=== PATIENT | female | born 1945 | race Caucasian/White ===

== ENCOUNTER 2016-11-06 07:35 | Emergency (ER) | payer OTHER ==
[~2016-11-06] VITALS: Ht 165.1 cm; Wt 69.3 kg
[~2016-11-06 07:35] MED LIST: CHOL100010 PO; CLOT10TR2 MT; LISI-725 PO; SIMV20TA2 PO
[2016-11-06] MEDS ORDERED: SODIUM CHLORIDE 0.9% 1000ML 1,000 ML IV STA (07:38)
[2016-11-06 07:42] VITALS: TEMP 36.7; O2SAT 95; Ht 165.1 cm; Wt 69.3 kg
--- NOTE | 2016-11-06 07:50 | EMERGENCY ROOM VISIT NOTE ---
History Report prepared by Leda: William Pearson Under the Supervision of: Dr. Harley Hopson M.D. First contact with patient: 07:37 Chief Complaint: SYNCOPE Stated Complaint: SYNCOPE, UPPER GASTRIC PAIN History of Present Illness The patient is a 71 year old female who presents to the Emergency Room with complaints of a resolved episode of syncope that occurred just prior to arrival. The patient woke up this morning to go to the bathroom and was feeling weak at that time. She was sitting on the toilet when she passed out and slid off of the toilet. The patient did not hit her head. The patient has passed out before when she had Lyme's disease years ago. The patient also complains of intermittent epigastric pain since yesterday. She experienced similar epigastric pain in the past when she had thrush. 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 A total of 10 systems reviewed and were otherwise negative. Past Medical & Surgical Medical Problems: (1) History of cellulitis (2) Lyme disease (3) Thrush Family History Cancer Heart disease Hypertension Social History Smoking Status: Former Smoker Drug Use: none Marital Status: Housing Status: lives with family Occupation Status: retired Current/Historical Medications Scheduled Cholecalciferol (Kp Vitamin D), 4,000 UNITS PO DAILY Clotrimazole (Mycelex), 10 MG MT 5XD Lisinopril (Zestril), 20 MG PO HS Oseltamivir Phosphate (Tamiflu), 75 MG PO BID Pantoprazole (Protonix), 40 MG PO DAILY Probiotic Product (Probiotic), Unknown Dose PO DAILY Ranitidine Hcl (Zantac), 75 MG PO DAILY Simvastatin (Zocor), 1 TAB PO HS Allergies Coded Allergies: Fluconazole (Unverified Allergy, Severe, HIVES, 11/06/16) Physical Exam Vital Signs Date Time Temp Pulse Resp B/P Pulse Ox O2 Delivery O2 Flow Rate FiO2 11/06/16 11:45 72 18 107/73 96 11/06/16 09:47 67 18 120/70 95 Room Air 11/06/16 08:24 71 18 128/59 100 Room Air 11/06/16 07:48 73 11/06/16 07:48 68 137/72 71 109/70 11/06/16 07:42 95 Room Air 11/06/16 07:42 36.7 68 18 126/83 95 Room Air Physical Exam GENERAL: Patient is a healthy-appearing well-nourished HEAD: Normocephalic atraumatic EYES: Ocular movements intact pupils equal and react to light OROPHARYNX mucous membranes are moist no exudates present no erythema or edema present NECK: Supple no nuchal rigidity CHEST: Good equal expansion LUNGS: Clear and equal to auscultation CARDIAC: Normal S1 and S2 ABDOMEN: Soft nontender no guarding BACK: No CVA tenderness EXTREMITIES: No pain upon palpation normal muscle strength in all groups no clubbing cyanosis or edema NEURO: Patient is following commands is answering questions appropriately. Alert and oriented x3 Cranial Nerves 2-12 grossly intact Medical Decision & Procedures ER Provider Diagnostic Interpretation: X-ray results as stated below per interpretation by me and the radiologist: CHEST ONE VIEW PORTABLE CLINICAL HISTORY: Syncope. COMPARISON STUDY: Chest radiograph April 15, 2015 [place] FINDINGS: Lung volumes are normal. Mild left basilar opacity suggests atelectasis. There is no consolidation to suggest pneumonia and there is no evidence of pulmonary edema. Cardiomediastinal silhouette is normal. IMPRESSION: 1. No acute findings. 2. Mild left basilar opacity suggestive of atelectasis. Electronically signed by: Jonh Perez M.D. 11/06/2016 8:09 AM Dictated Date/Time: 11/06/2016 8:08 AM Laboratory Results 11/06/16 07:10 Red Blood Count 5.20, Mean Corpuscular Volume 86.5, Mean Corpuscular Hemoglobin 30.8, Mean Corpuscular Hemoglobin Concent 35.6, Mean Platelet Volume 11.3, Neutrophils (%) (Auto) 31.2, Lymphocytes (%) (Auto) 59.7, Monocytes (%) (Auto) 8.8, Eosinophils (%) (Auto) 0.0, Basophils (%) (Auto) 0.3, Neutrophils # (Auto) 1.18, Lymphocytes # (Auto) 2.25, Monocytes # (Auto) 0.33, Eosinophils # (Auto) 0.00, Basophils # (Auto) 0.01 11/06/16 07:10 Test 11/06/16 07:10 11/06/16 07:54 11/06/16 08:21 11/06/16 10:45 White Blood Count 3.77 K/uL (4.8-10.8) Red Blood Count 5.20 M/uL (4.2-5.4) Hemoglobin 16.0 g/dL (12.0-16.0) Hematocrit 45.0 % (37-47) Mean Corpuscular Volume 86.5 fL (80-100) Mean Corpuscular Hemoglobin 30.8 pg (25-34) Mean Corpuscular Hemoglobin Concent 35.6 g/dl (32-36) Platelet Count 176 K/uL (130-400) Mean Platelet Volume 11.3 fL (7.4-10.4) Neutrophils (%) (Auto) 31.2 % Lymphocytes (%) (Auto) 59.7 % Monocytes (%) (Auto) 8.8 % Eosinophils (%) (Auto) 0.0 % Basophils (%) (Auto) 0.3 % Neutrophils # (Auto) 1.18 K/uL (1.4-6.5) Lymphocytes # (Auto) 2.25 K/uL (1.2-3.4) Monocytes # (Auto) 0.33 K/uL (0.11-0.59) Eosinophils # (Auto) 0.00 K/uL (0-0.5) Basophils # (Auto) 0.01 K/uL (0-0.2) RDW Standard Deviation 41.9 fL (36.4-46.3) RDW Coefficient of Variation 13.2 % (11.5-14.5) Immature Granulocyte % (Auto) 0.0 % Immature Granulocyte # (Auto) 0.00 K/uL (0.00-0.02) Smudge Cells PRESENT Giant Platelets 1+ Anion Gap 14.0 mmol/L (3-11) Est Creatinine Clear Calc Drug Dose 49.7 ml/min Estimated GFR () 65.2 Estimated GFR (Non- 56.2 BUN/Creatinine Ratio 11.1 (10-20) Calcium Level 9.1 mg/dl (8.5-10.1) Total Bilirubin 0.4 mg/dl (0.2-1) Direct Bilirubin 0.1 mg/dl (0-0.2) Aspartate Amino Transf (AST/SGOT) 23 U/L (15-37) Alanine Aminotransferase (ALT/SGPT) 20 U/L (12-78) Alkaline Phosphatase 56 U/L (45-117) Total Creatine Kinase 83 U/L (26-192) Creatine Kinase MB 0.8 ng/ml (0.5-3.6) Creatine Kinase MB Ratio 1.0 (0-3.0) Troponin I < 0.015 ng/ml (0-0.045) Total Protein 7.4 gm/dl (6.4-8.2) Albumin 3.8 gm/dl (3.4-5.0) Thyroid Stimulating Hormone (TSH) 5.470 uIu/ml (0.300-4.500) Bedside Glucose 115 mg/dl (70-90) Influenza Type A Antigen Neg for Influ A (NEG) Influenza Type B Antigen POS for Influ B (NEG) Urine Color YELLOW Urine Appearance CLEAR (CLEAR) Urine pH 7.5 (4.5-7.5) Urine Specific [place] 1.010 (1.000-1.030) Urine Protein NEG (NEG) Urine Glucose (UA) NEG (NEG) Urine Ketones TRACE (NEG) Urine Occult Blood NEG (NEG) Urine Nitrite NEG (NEG) Urine Bilirubin NEG (NEG) Urine Urobilinogen NEG (NEG) Urine Leukocyte Esterase NEG (NEG) Labs reviewed by ED physician. Medications Administered Medications (Trade) Dose Ordered Sig/Liam Route Start Time Stop Time Status Last Admin Dose Admin Sodium Chloride (Nss 1000ml) 1,000 ml @ 999 mls/hr Q1H1M STAT IV 11/06/16 07:38 11/06/16 08:38 DC 11/06/16 07:56 999 MLS/HR Ondansetron HCl (Zofran Inj) 4 mg NOW STAT IV 11/06/16 08:00 11/06/16 08:01 DC 11/06/16 08:07 4 MG Potassium Chloride (Klor-Con M10) 40 meq NOW STAT PO 11/06/16 08:19 11/06/16 08:20 DC 11/06/16 08:37 40 MEQ Oseltamivir Phosphate (Tamiflu Cap) 75 mg NOW STAT PO 11/06/16 09:05 11/06/16 09:06 DC 11/06/16 09:15 75 MG Acetaminophen (Tylenol Tab) 1,000 mg NOW STAT PO 11/06/16 09:32 11/06/16 09:33 DC 11/06/16 09:44 1,000 MG ECG Indication: syncope Rate (beats per minute): 68 Rhythm: normal sinus Findings: no acute ischemic change, no ectopy, other (normal EKG) ED Course 0735: Past medical records reviewed. The patient was evaluated in room B4b. A complete history and physical examination was performed. 0738: NSS 1000 ml @ 999 mls/hr. 0800: Zofran 4 mg IV. 0819: Potassium Chloride 40 meq PO. 0905: Tamiflu 75 mg PO. 0932: Tylenol 1000 mg PO. 1000: Reassessed the patient. Discussed the findings with her. She verbalized understanding and agreement of the plan. The patient is ready for discharge. Medical Decision Prior records/ancillary studies reviewed. Triage Nursing notes reviewed. The patient's history was concerning for syncope. Differential diagnosis: Etiologies such as vasovagal event, infection, hypoglycemia, electrolyte abnormalities, cardiac sources, intracerebral event, toxicologic, neurologic, as well as others were entertained. this is a 71-year-old female who presents emergency department complaining of a near syncopal episode as she lower herself to the ground. The patient is positive for the flu she does not have an elevation in her white blood count. She was given fluids in the emergency department and started on Tamiflu. She was also given Tylenol. She was fed in the emergency department. Repeat examination revealed improvement patient's symptoms. At this point the patient would like to try it at home. I offered admission however the patient does not wish to be admitted. Patient was in agreement with the treatment plan. Impression Primary Impression: Influenza B Additional Impression: Syncope Scribe Attestation The scribe's documentation has been prepared under my direction and personally reviewed by me in its entirety. I confirm that the note above accurately reflects all work, treatment, procedures, and medical decision making performed by me. Departure Information Dispostion Home / Self-Care Prescriptions Oseltamivir Phosphate (Tamiflu) 75 Mg Cap 75 MG PO BID, #10 CAP Prov: Harley Hopson MD 11/06/16 Referrals Jose Luis Davila M.D. (PCP) Forms HOME CARE DOCUMENTATION FORM, IMPORTANT VISIT INFORMATION, School Instructions, Work Instructions Patient Instructions ED Fever Control, ED Flu, ED Near Syncope Vasovagal, My [facility] Additional Instructions Take 1000 mg Tylenol every 6 hours Increase fluids next 48 hours You have been examined and treated today on an emergency basis only. This is not a substitute for, or an effort to provide, complete comprehensive medical care. It is impossible to recognize and treat all injuries or illnesses in a single emergency department visit. It is therefore important that you follow up closely with Dr Davila. Call as soon as possible for an appointment. Thank you for your time and consideration. I look forward to speaking with you again soon. Please don't hesitate to call us if you have any questions. Problem Qualifiers Additional Impression: Syncope Syncope type: vasovagal syncope Qualified Codes: R55 - Syncope and collapse
[2016-11-06 07:52] LABS: MEAN CELL VOLUME 86.5 fL (80-100); MEAN CORPUSCULAR HEMOGLOBIN 30.8 pg (25-34); MEAN CORPUSCULAR HGB CONC 35.6 g/dl (32-36); MEAN PLATELET VOLUME 11.3 fL (7.4-10.4); PLATELET COUNT 176 K/uL (130-400); WHITE BLOOD COUNT 3.77 K/uL (4.8-10.8)
[2016-11-06] MEDS ORDERED: ONDANSETRON INJ 2 MG/ML 2 ML VIAL IV STA (08:00)
[2016-11-06] MEDS ORDERED: PANT40TA PO (08:10)
[2016-11-06] MEDS ORDERED: SIMV40TA4 PO (08:10)
[2016-11-06] MEDS ORDERED: CHOL1CAP PO (08:10)
[2016-11-06] MEDS ORDERED: RANI150T3 PO (08:10)
[2016-11-06] MEDS ORDERED: MISCCAP80 PO (08:11)
--- NOTE | 2016-11-06 08:11 | DIAGNOSTIC IMAGING REPORT ---
CHEST ONE VIEW PORTABLE CLINICAL HISTORY: Syncope. COMPARISON STUDY: Chest radiograph April 15, 2015 [place] FINDINGS: Lung volumes are normal. Mild left basilar opacity suggests atelectasis. There is no consolidation to suggest pneumonia and there is no evidence of pulmonary edema. Cardiomediastinal silhouette is normal. IMPRESSION: 1. No acute findings. 2. Mild left basilar opacity suggestive of atelectasis. Electronically signed by: John Perez M.D. 11/06/2016 8:09 AM Dictated Date/Time: 11/06/2016 8:08 AM
[2016-11-06 08:14] LABS: BLOOD UREA NITROGEN 11 mg/dl (7-18); BUN/CREATININE RATIO 11.1 (10-20); CALCIUM 9.1 mg/dl (8.5-10.1); CARBON DIOXIDE 28 mmol/L (21-32); CHLORIDE 93 mmol/L (98-107); GLUCOSE 128 mg/dl (70-99); SODIUM 135 mmol/L (136-145)
[2016-11-06] MEDS ORDERED: POTASSIUM CHLORIDE 10 MEQ TABCR PO STA (08:19)
[2016-11-06 08:24] LABS: ALKALINE PHOSPHATASE 56 U/L (45-117); ALT/SGPT 20 U/L (12-78); AST/SGOT 23 U/L (15-37)
[2016-11-06] MEDS ORDERED: OSELTAMIVIR PHOSPHATE 75 MG CAP PO STA (09:05)
[2016-11-06 09:26] LABS: BASO % 0.3 %; BASO ABS # 0.01 K/uL (0-0.2); COMPLETE YES; GIANT PLATELETS 1+; LYMPH % 59.7 %; MONO % 8.8 %; NEUT % 31.2 %; SMUDGE CELLS PRESENT
[2016-11-06] MEDS ORDERED: ACETAMINOPHEN 500 MG TAB PO STA (09:32)
[2016-11-06] MEDS ORDERED: NF406 PO (09:57)
[2016-11-06 11:15] LABS: URINE APPEARANCE CLEAR (CLEAR); URINE BILIRUBIN NEG (NEG); URINE COLOR YELLOW; URINE NITRITE NEG (NEG); URINE PH 7.5 (4.5-7.5); UROBILINOGEN NEG (NEG)
[2016-11-06 11:20] LABS: MANUAL MICROSCOPIC REQUIRED? NO; REVIEW REQ? NO
[2016-11-06 11:45] VITALS: BP 107/73; PULSE 72; O2SAT 96
[2016-11-08 07:09] LABS: LYMPH ABS # 2.25 K/uL (1.2-3.4)
== END 2016-11-06 11:47 | disposition home or self-care (01) ==
LOC: EDBD 07:35 → C.EDB 07:36
DX: J11.1 Influenza due to unidentified influenza virus with other respiratory manifestations (principal); R55 Syncope and collapse; Z87.891 Personal history of nicotine dependence; R10.9 Unspecified abdominal pain; Z79.899 Other long term (current) drug therapy

== ENCOUNTER → 2016-11-12 | Outpatient (CLI) | payer OTHER ==
[~2016-11-12] MED LIST changes: -CHOL100010 PO; +CHOL1CAP PO; +MISCCAP80 PO; +NF406 PO; +PANT40TA PO; +RANI150T3 PO; -SIMV20TA2 PO; +SIMV40TA4 PO
[2016-11-12 17:45] LABS: BLOOD UREA NITROGEN 14 mg/dl (7-18); BUN/CREATININE RATIO 13.6 (10-20); CALCIUM 9.1 mg/dl (8.5-10.1); CARBON DIOXIDE 30 mmol/L (21-32); CHLORIDE 95 mmol/L (98-107); GLUCOSE 112 mg/dl (70-99); POTASSIUM 3.2 mmol/L (3.5-5.1); SODIUM 133 mmol/L (136-145)
== END | disposition home or self-care (01) ==
LOC: C.LABBFT 14:01
PROVIDERS: ATTEND Internal Medicine
DX: J10.1 Influenza due to other identified influenza virus with other respiratory manifestations (principal); R79.9 Abnormal finding of blood chemistry, unspecified

== ENCOUNTER → 2016-11-25 | Outpatient (CLI) | payer OTHER ==
[2016-11-25 13:03] LABS: ESTIMATED AVERAGE GLUCOSE 114 mg/dl; HA1C FLAG Normal (Normal)
[2016-11-25 13:17] LABS: ALT/SGPT 18 U/L (12-78); AST/SGOT 11 U/L (15-37); BLOOD UREA NITROGEN 13 mg/dl (7-18); BUN/CREATININE RATIO 14.1 (10-20); CALCIUM 9.1 mg/dl (8.5-10.1); CARBON DIOXIDE 31 mmol/L (21-32); CHLORIDE 105 mmol/L (98-107); CHOLESTEROL 149 mg/dl (0-200); CREATININE 0.92 mg/dl (0.60-1.20); GLUCOSE 96 mg/dl (70-99); GLUCOSE,FASTING 96 mg/dl (70-99); POTASSIUM 4.1 mmol/L (3.5-5.1); SODIUM 143 mmol/L (136-145)
[2016-11-25 13:20] LABS: ALB/GLOB RATIO 1.2 (0.9-2); ALKALINE PHOSPHATASE 50 U/L (45-117); CHOLESTEROL/HDL RATIO 2.7; HDL CHOLESTEROL 55 mg/dl; LDL CHOLESTEROL CALCULATED 68 mg/dl; TRIGLYCERIDES 128 mg/dl (0-150); VERY LOW DENSITY LIPOPROT CALC 26 mg/dl
--- NOTE | 2016-12-02 06:15 | CODING QUERY MEDICAL NECESSITY ---
CQSUPPORTING DIAGNOSIS NEEDED A supporting diagnosis is required for the test/procedure performed on this patient in order for us to be reimbursed by the patient's insurance. Please provide a supporting diagnosis for the following test/procedure listed below next to the test name along with your signature. *If there is no additional diagnosis for this patient that would support the following test/procedure please document that below next to the test/procedure. Test(s)/Procedure(s) that require a supporting diagnosis: DOS 11/25/16 VITAMIN D TEST Provider Signature: Date: Thank you Terri Starr Health Information Management Once completed, please kindly fax back to [phone] For questions please call [phone]
== END | disposition home or self-care (01) ==
LOC: C.LABBFT 08:16
PROVIDERS: ATTEND Internal Medicine
DX: E78.00 Pure hypercholesterolemia, unspecified (principal); R73.01 Impaired fasting glucose; M85.80 Other specified disorders of bone density and structure, unspecified site; E55.9 Vitamin D deficiency, unspecified

== ENCOUNTER → 2017-05-20 | Outpatient (CLI) | payer OTHER ==
[~2017-05-20] MED LIST changes: -NF406 PO
--- NOTE | 2017-05-20 12:37 | MAMMOGRAPHY REPORT ---
BILATERAL DIGITAL SCREENING MAMMOGRAM WITH CAD: 05/20/2017 CLINICAL HISTORY: Routine screening. TECHNIQUE: Bilateral CC and MLO views were obtained. Current study was also evaluated with a Compute r Aided Detection (CAD) system. COMPARISON: Comparison is made to exams dated: 05/07/2016 mammogram, 05/04/2015 mammogram, 03/14/2014 m ammogram, 03/11/2013 mammogram, 03/10/2012 mammogram, and 03/06/2011 mammogram - [facility] enter. BREAST COMPOSITION: There are scattered areas of fibroglandular density in both breasts. FINDINGS: There are a few benign-appearing round microcalcifications in the breasts. No suspicious m ass, architectural distortion or cluster of suspicious microcalcifications is seen. IMPRESSION: ACR BI-RADS CATEGORY 1: NEGATIVE There is no mammographic evidence of malignancy. A 1 year screening mammogram is recommended. The pa tient will receive written notification of the results. Approximately 10% of breast cancers are not detected with mammography. A negative mammographic report should not delay biopsy if a clinically suggestive mass is present. Deepa Zamora M.D. ay/:05/20/2017 09:53:[address] Magistrate: Salvador Yang RT(R)(M), [facility] letter sent: Normal 1/2 BI-RADS Code: ACR BI-RADS Category 1: Negative
== END | disposition home or self-care (01) ==
LOC: C.MAMM 09:24
PROVIDERS: ATTEND Internal Medicine
DX: Z12.31 Encounter for screening mammogram for malignant neoplasm of breast (principal)

== ENCOUNTER → 2017-05-27 | Outpatient (CLI) | payer OTHER ==
[2017-05-27 12:27] LABS: BASO % 0.3 %; BASO ABS # 0.01 K/uL (0-0.2); COMPLETE YES; EOS % 1.8 %; HEMATOCRIT 44.4 % (37-47); LYMPH % 31.8 %; LYMPH ABS # 1.22 K/uL (1.2-3.4); MEAN CELL VOLUME 91.7 fL (80-100); MEAN CORPUSCULAR HEMOGLOBIN 30.4 pg (25-34); MEAN CORPUSCULAR HGB CONC 33.1 g/dl (32-36); MEAN PLATELET VOLUME 10.6 fL (7.4-10.4); MONO % 10.4 %; NEUT % 55.7 %; PLATELET COUNT 256 K/uL (130-400); RED BLOOD COUNT 4.84 M/uL (4.2-5.4); WHITE BLOOD COUNT 3.84 K/uL (4.8-10.8)
[2017-05-27 12:43] LABS: URINE APPEARANCE CLEAR (CLEAR); URINE BILIRUBIN NEG (NEG); URINE COLOR YELLOW; URINE NITRITE NEG (NEG); URINE PH 7.5 (4.5-7.5); URINE SPECIFIC GRAVITY 1.015 (1.000-1.030); UROBILINOGEN NEG (NEG); ZZUR CULT IF INDIC CLEAN CATCH NO
[2017-05-27 12:51] LABS: MANUAL MICROSCOPIC REQUIRED? NO; REVIEW REQ? NO
[2017-05-27 13:10] LABS: ESTIMATED AVERAGE GLUCOSE 114 mg/dl; HA1C FLAG Normal (Normal)
[2017-05-27 13:16] LABS: BLOOD UREA NITROGEN 18 mg/dl (7-18); BUN/CREATININE RATIO 20.6 (10-20); CALCIUM 9.5 mg/dl (8.5-10.1); CARBON DIOXIDE 32 mmol/L (21-32); CHLORIDE 102 mmol/L (98-107); CREATININE 0.89 mg/dl (0.60-1.20); GLUCOSE 98 mg/dl (70-99); SODIUM 138 mmol/L (136-145)
== END | disposition home or self-care (01) ==
LOC: C.LABBFT 07:51
PROVIDERS: ATTEND Internal Medicine
DX: R73.01 Impaired fasting glucose (principal)

== ENCOUNTER → 2017-10-20 | Outpatient (CLI) | payer OTHER | END | disposition home or self-care (01) | LOC: C.LABBFT 09:58 | PROVIDERS: ATTEND Nurse Practitioner | DX: R14.0 Abdominal distension (gaseous) (principal) ==

== ENCOUNTER → 2017-10-23 | Outpatient (CLI) | payer OTHER | END | disposition home or self-care (01) | LOC: C.LABBFT 08:02 | PROVIDERS: ATTEND Nurse Practitioner | DX: R14.0 Abdominal distension (gaseous) (principal) ==

== ENCOUNTER → 2017-10-24 | Outpatient (CLI) | payer OTHER | END | disposition home or self-care (01) | LOC: C.LABBFT 07:55 | PROVIDERS: ATTEND Nurse Practitioner | DX: R14.0 Abdominal distension (gaseous) (principal) ==

== ENCOUNTER → 2017-11-10 | Outpatient (CLI) | payer OTHER ==
[~2017-11-10] MED LIST changes: +OPTIRAY 320 IV PRN
--- NOTE | 2017-11-10 12:33 | DIAGNOSTIC IMAGING REPORT ---
ABDOMEN AND PELVIS CT WITH IV AND ORAL CONTRAST CT DOSE: 621.49 mGycm HISTORY: Acute lower abdominal pain ABD PAIN TECHNIQUE: Multiaxial CT images of the abdomen and pelvis were performed following the use of intravenous and oral contrast. A dose lowering technique was utilized adhering to the principles of ALARA. COMPARISON STUDY: None. FINDINGS: Small right [place]chdalek hernia. Mild dependent subsegmental bibasilar atelectasis. There are multiple groundglass nodules of the lung bases, largest of which measure up to 5 mm. Solid 4 mm nodule seen on image 26 series 3. Calcified granulomas of the lung bases are also noted. Small right [place]chdalek hernia. No pneumatosis or pneumoperitoneum. Imaged inferior cardiac chambers are unremarkable. Low attenuating 6 mm lesion of the hepatic dome suggests hepatic cyst however is indeterminate. Liver is otherwise unremarkable. Calcified granulomas are noted throughout the spleen. The pancreas and adrenal glands are within normal limits. The gallbladder is mildly contracted. The kidneys demonstrate no acute abnormality. 3 mm low attenuating lesion of the posterior inferior pole right kidney is too small to characterize however suggest renal cysts. The ureters are within normal limits. The urinary bladder is collapsed. Uterus and right adnexum are unremarkable. There is an ovoid cystic appearing lesion adjacent to the left adnexum, 2.9 x 2.0 cm nicely seen on image 324 of series 3. Moderate mixed plaquing tortuosity of the abdominal aorta. No bulky adenopathy identified. There is no bowel obstruction or focal bowel wall thickening identified. The appendix appears normal. Soft tissues are unremarkable. The bones appear intact. Multilevel discogenic degenerative changes and facet arthrosis of the spine. IMPRESSION: 1. No acute intra-abdominal or intrapelvic abnormality identified. 2. No bowel obstruction or focal bowel wall thickening. Normal appendix. 3. Multiple nonspecific groundglass nodules of the bilateral lung bases measuring up to 5 mm suggest infectious or inflammatory pneumonitis. 4. Prior granulomatous disease. 5. Ovoid 2.9 cm cystic lesion of the left adnexum is indeterminate. This could be further evaluated with nonemergent pelvic ultrasound. Electronically signed by: Latrell Roberts M.D. 11/10/2017 12:31 PM Dictated Date/Time: 11/10/2017 12:24 PM
== END | disposition home or self-care (01) ==
LOC: C.CTS 11:48
PROVIDERS: ATTEND Nurse Practitioner
DX: R10.84 Generalized abdominal pain (principal)

== ENCOUNTER → 2017-11-12 | Outpatient (CLI) | payer OTHER ==
[~2017-11-12] MED LIST changes: -OPTIRAY 320 IV PRN
--- NOTE | 2017-11-12 12:16 | DIAGNOSTIC IMAGING REPORT ---
PELVIC COMPLETE NON OB CLINICAL HISTORY: N94.9 Adnexal cyst(Left adnexal cyst) - please further evaluat COMPARISON STUDY: CT 11/10/2017 FINDINGS: The uterus measured 4.4 cm. The endometrial stripe measured 3 mm. The right ovary measured 1.8 cm maximum dimension. Normal vascular flow.. The left ovary measured 2.6 cm maximum dimension with a 2.3 cm septated cyst.. There is no ultrasonographic evidence of ovarian torsion. It should be noted that ovarian torsion can be present with normal Doppler ultrasonographic findings. There was no evidence of pathologic free pelvic fluid. IMPRESSION: 1. 2.3 cm septated left ovarian cyst. 2. Remainder the study is unremarkable for age. 3. This cyst/cystic lesion should be closely monitored as it is considered an abnormal finding for age The above report was generated using voice recognition software. It may contain grammatical, syntax or spelling errors. Electronically signed by: Ryan Lopez M.D. 11/12/2017 12:15 PM Dictated Date/Time: 11/12/2017 12:12 PM
== END | disposition home or self-care (01) ==
LOC: C.ULTR 11:21
PROVIDERS: ATTEND Nurse Practitioner
DX: N83.202 Unspecified ovarian cyst, left side (principal)

== ENCOUNTER → 2017-12-03 | Outpatient (CLI) | payer OTHER | END | disposition home or self-care (01) | LOC: C.LAB1850 11:44 | PROVIDERS: ATTEND Obstetrics & Gynecology | DX: N83.291 Other ovarian cyst, right side (principal) ==

== ENCOUNTER → 2017-12-09 | Outpatient (CLI) | payer OTHER ==
[2017-12-09 13:36] LABS: ALBUMIN 3.9 gm/dl (3.4-5.0); ALT/SGPT 20 U/L (12-78); AST/SGOT 16 U/L (15-37); BLOOD UREA NITROGEN 21 mg/dl (7-18); CALCIUM 9.2 mg/dl (8.5-10.1); CARBON DIOXIDE 32 mmol/L (21-32); CREATININE 0.95 mg/dl (0.60-1.20); GLUCOSE 93 mg/dl (70-99); POTASSIUM 3.9 mmol/L (3.5-5.1); SODIUM 140 mmol/L (136-145)
[2017-12-09 13:39] LABS: ALKALINE PHOSPHATASE 56 U/L (45-117); CHOLESTEROL 170 mg/dl (0-200); LDL CHOLESTEROL CALCULATED 82 mg/dl; TOTAL PROTEIN 7.2 gm/dl (6.4-8.2)
== END | disposition home or self-care (01) ==
LOC: C.LABBFT 07:54
PROVIDERS: ATTEND Internal Medicine
DX: I10 Essential (primary) hypertension (principal); E78.00 Pure hypercholesterolemia, unspecified; E55.9 Vitamin D deficiency, unspecified